=== PATIENT | female | born 1965 | race Caucasian/White ===

== ENCOUNTER 2022-01-11 07:41 | Outpatient (REF) | payer OTHER, SELFPAY ==
--- NOTE | ~2022-01-11 | MM_ITS ---
EXAMINATION: MM SCREENING DIGITAL BREAST TOMOSYNTHESIS, BILATERAL CLINICAL INFORMATION: Screening. Asymptomatic. History left ADH 2011. Recent outside benign left stereotactic biopsy 09/13/2019 (microcalcifications with columnar cell change, cystic apocrine metaplasia). Outside right cyst aspiration 09/13/2019. The lifetime risk of breast cancer based on the Tyrer-Cuzick Model is 29.5%. COMPARISON: Outside mammography: 09/13/2019, 09/08/2019, 07/19/2018 ([facility]); outside right cyst aspiration 09/13/2019 ([facility]); 08/27/2011, 08/01/2011. TECHNIQUE: Digital breast tomosynthesis is performed in both the craniocaudal and mediolateral oblique views along with computer-aided detection (CAD). Synthesized 2D images are generated from the tomosynthesis. FINDINGS: There are scattered areas of fibroglandular density (ACR BI-RADS breast composition Category b). Breast tissue composition borders on heterogeneously dense in the outer quadrants. There is a T-shaped biopsy clip marker posterior outer left breast. Stable minor scarring is present central inner left breast. There is no significant mass or interval architectural abnormality or developing density. Scattered punctate and some coarse calcifications are present in both breasts similar in number and distribution to prior outside exams. No significant changes. MM/MM tomosynthesis screening BI IMPRESSION: No mammographic evidence of malignancy. ASSESSMENT: BI-RADS 2: Benign RECOMMENDATION: Routine annual mammography screening. This patient's information was entered into a reminder system with a target due date for their next mammogram.
== END 2022-01-11 07:42 | disposition home or self-care (01) ==
LOC: HO.MAMMO 07:41
PROVIDERS: PCP Internal Medicine; Visit Provider Internal Medicine
DX: Z12.31 Encounter for screening mammogram for malignant neoplasm of breast (principal)
CPT/HCPCS: 77063; 77067

== ENCOUNTER 2023-01-16 09:10 | Outpatient (AMB) | payer OTHER, SELFPAY ==
--- NOTE | 2023-01-16 09:01 | A.OFFPC_ITS ---
Intake Visit Reasons: Annual Exam Allergies ENVIRONMENTAL Allergy (Unknown, Uncoded 12/18/21 09:38) EYES WATER, SNEEZING Tobacco use date assessed: 12/18/21 [facility] Medical History Borderline hypercholesterolemia Essential hypertension History of LEEP (loop electrosurgical excision procedure) of cervix complicating Surgical History History of lumpectomy Family History Other Mental health disorder Social History Housing: House Alcohol intake: never Patient Tobacco Use Status: Current everyday Tobacco user Tobacco use type: Cigarette Cigarette Packs Per Day: 0.5 Cigarettes Per Day: 10 e-Cigarette/Vaping Use: Never Used Second Hand Smoke Exposure: Yes service: No Current occupational status: employed 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 Chet Montano, Berta Lugo, Antione Butler and colleagues, with an educational yulissa from [employer]. Physical exam (Primary Care) Tobacco/Smoking Status: Tobacco use Status Tobacco use date assessed 12/18/21 11/14/22 11:52 Patient Tobacco Use Status Current everyday Tobacco 11/14/22 11:52 Tobacco use type Cigarette 11/14/22 11:52 e-Cigarette/Vaping Use Never Used 11/14/22 11:52 Thrive Assessment: Date of Thrive Assessment Date Thrive assessed 12/18/21 11/14/22 11:52 Coding
[2023-01-16 09:11] VITALS: BP 120/78; PULSE 74; O2SAT 99; BMI 22.7
--- NOTE | 2023-01-16 09:11 | MHC.PC.OV ---
Vital Signs 01/16/23 09:11 Height 5 ft 3 in Weight 128 lb 0.4 oz BMI 22.7 BP 120/78 Blood Pressure Location Lt brachial Position Sitting Pulse 74 Pulse Source Pulse Oximeter Temp Source Skin Pulse Oximetry (%) 99 Oxygen Delivery Method Room Air Intake Visit Reasons: Annual Exam Intake Note: Patient is here today for a physical. Bee Rancher Required: No Allergies ENVIRONMENTAL Allergy (Unknown, Uncoded 01/16/23 09:30) EYES WATER, SNEEZING Medication List - Last Reconciled 01/16/23 by KIANNA Rowland sertraline 150 mg (1.5 x 100 mg) PO DAILY simvastatin 10 mg PO QPM Tobacco use date assessed: 01/16/23 Dental Screening Dental Screen Date: 01/16/23 Did you have a dental visit in the last 12 months?: No Did you have a dental problem in the last 6 months where you did not have access to dental care?: No Was dental information given to patient?: Patient has dentist HPI Annual Exam HPI Details Patient is a 57-year-old female who presents today for physical exam. Patient of Dr. Araiza. Medical history significant for hypercholesterolemia, hypertension, depression. Patient reports normal colonoscopy in 2015 at [facility] and repeat in 10 years. She received a letter for mammogram and will call for an appointment. She reports normal Pap smear 03/[address] [facility] gynecology. We also discussed patient's need for low-dose chest CT scan, she will think about this. Encouraged smoking cessation, patient smokes 0.5 ppd, declined nicotine patch. Eye exam up-to-date. Will call for dental exam. Reports brown discoloration to her toenails and would like evaluation for this. Patient denies shortness of breath or chest pain. 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 1. Little interest or pleasure in doing things: not at all 2. Feeling down, depressed, or hopeless: not at all 3. Trouble falling or staying asleep, or sleeping too much: not at all 4. Feeling tired or having little energy: not at all 5. Poor appetite or overeating: not at all 6. Feeling bad about yourself - or that you are a failure or have let yourself or your family down: not at all 7. Trouble concentrating on things, such as reading the newspaper or watching television: not at all 8. Moving or speaking so slowly that other people could have noticed. Or the opposite - being so fidgety or restless that you have been moving around a lot more than usual: not at all 9. Thoughts that you would be better off or of hurting yourself in some way: not at all Total score: 0 Depression Screening Interpretation: Negative Depression Screening Done: Yes [id number] - PHQ-9 Billing: Yes Source: Developed by Drs. Chet Montano, Berta Lugo, Antione Butler and colleagues, with an educational yulissa from [employer]. Thrive Questionnaire Date Thrive assessed: 01/16/23 I am a: Patient What is your living situation today?: I have a steady place to live Within the past 12 months, did the food you bought not last and you didn't have the money to get more?: Never true Within the past 12 months, did you worry whether your food would run out before you got money to buy more?: Never true Do you have trouble paying for medicines?: No Do you have trouble getting transportation to medical appointments?: No Do you have trouble paying your heating and electricity bill?: No Do you have trouble taking care of your child, family member or friend?: No Do you have trouble with day-to-day activities such as bathing, preparing meals, shopping, managing finances, etc.?: No Are you currently unemployed and looking for a job?: No Are you interested in more education?: No Currently or been in a relationship where the following occur: no concerns reported AUDIT C Alcohol Use Questionnaire (AUDIT-C) 1. How often do you have a drink containing alcohol?: 2-4 times a month 2. How many drinks containing alcohol do you have on a typical day when you are drinking?: 1 or 2 (0) 3. How often do you have six or more drinks on one occasion?: Never Total Score: 2 Score Reviewed/Action Taken: No OUMOU-7 AMB Questionnaire OUMOU-7 Date OUMOU - 7 assessed: 01/16/23 Feeling nervous, anxious, or on edge: 0 = Not at all Not being able to stop or control worryin = Not at all Worrying too much about different things: 0 = Not at all Trouble relaxin = Not at all Being so restless that it is hard to sit still: 0 = Not at all Becoming easily annoyed or irritable: 0 = Not at all Feeling afraid as if something awful might happen: 0 = Not at all Total OUMOU-7 score (0-4 normal; 5-9 mild; 10-14 moderate; 15-21 severe): 0 Source: Developed by Drs. Chet Montano, Berta Lugo, Antione Butler and colleagues, with an educational yulissa from [employer]. OUMOU-7 Assessment Billing OUMOU-7 Assessment Tool: OUMOU-7 Assessment 15846 Review of Systems Const Denies body aches, Denies chills, Denies fever(s) and Denies headache(s) Eyes Denies change in vision ENT Denies dizziness, Denies otalgia, Denies headache(s), Denies nasal discharge, Denies sinus pain and Denies sore throat Card Denies chest pain, Denies edema, Denies lightheadedness and Denies dyspnea Resp Denies cough, Denies dyspnea and Denies wheezing GI Denies abdominal pain, Denies constipation, Denies diarrhea, Denies nausea and Denies vomiting Denies dysuria Musc Denies myalgias Skin/Breast Reports as per HPI and Denies rash Neuro Denies dizziness and Denies headache(s) Aller/Immun Denies wheezing Physical exam (Primary Care) Vital Signs: Last Vital Signs Pulse 74 01/16/23 09:11 BP 120/78 01/16/23 09:11 Pulse Ox 99 01/16/23 09:11 Oxygen Delivery Method Room Air 01/16/23 09:11 BMI result Body Mass Index 22.7 Tobacco/Smoking Status: Tobacco use Status Tobacco use date assessed 01/16/23 01/16/23 09:13 Patient Tobacco Use Status Current everyday Tobacco 01/16/23 09:13 Tobacco use type Cigarette 01/16/23 09:13 e-Cigarette/Vaping Use Never Used 01/16/23 09:13 PHQ-9: PHQ-9 Score PHQ-9: Total score 0 01/16/23 09:18 Depression Screening Interpretation: Negative Thrive Assessment: Date of Thrive Assessment Date Thrive assessed 01/16/23 01/16/23 09:13 Currently or been in a relationship where the following occur: no concerns reported Const General: cooperative and no acute distress Orientation/consciousness: patient oriented x3 HENMT Head: Yes normocephalic and Yes atraumatic Ears: TM's normal bilaterally Face and sinus: Yes sinuses nontender Mouth: oropharynx normal and moist mucous membranes Throat: Yes posterior oropharynx normal Eyes General: appearance normal, both eyes and all related structures Pupils: Equal, round and reactive pupils present EOM: EOMs intact bilaterally Neck Neck: Yes normal visual inspection, Yes full ROM and Yes no lymphadenopathy Thyroid: Thyroid normal Resp Effort & Inspection: normal respiratory effort and able to speak in complete sentences Auscultation: clear to auscultation bilaterally, no crackles, no rales, no rhonchi and no wheezes Cardio Rate: regular rate Rhythm: regular rhythm Heart sounds: S1 normal heart sound present, S2 normal heart sound present and no murmurs GI Palpation (GI): Soft to palpation, not firm, nontender, no guarding, not rigid and no hepatosplenomegaly Auscultation: normal bowel sounds General: No CVA tenderness Back/Spine/Pelvis Back: No CVA tenderness Skin Other: Multiple toenails with brown discoloration and thick nails Neuro General: patient oriented x3 Cranial nerves: Yes Equal, round and reactive pupils present Gait exam (Neuro): Normal gait present Extrem General: Yes full ROM and No edema Office Procedures Flu Questionnaire Does the patient have a severe egg allergy?: No Does the patient have severe life threatening allergies?: No Does the patient have a fever or illness today?: No Has the patient ever had Guillain-[place] Syndrome?: No Has the patient ever had any past reaction to a flu shot?: No Immunizations flu vacc [id number] 6mos up(PF) 60 mcg(15 mcgx4)/0.5 mL IM syringe Performing Provider: KIANNA Rowland [facility] Administered by: MASOUD Pulido on 01/16/23 09:18 Dose Route Admin Location Dispensed Lot Number Expiration Date NDC Internet Marketing Consultant 0.5 mL IM Left Deltoid 0.5 mL [id number] 09/27/23 71069-470-52 [employer] VIS Given Date VIS Provided VIS Publication Date 01/16/23 Single Vaccine 20 Eligibility Eligibility Date Funding Source Not [facility] Eligible 01/16/23 Private Assessment and Plan Assessment & Plan (1) Toenail fungus: Code(s): B35.1 - Tinea unguium Plan: Podiatry referral (2) Depression: Code(s): F32.A - Depression, unspecified Qualifiers: Depression Type: other depression Qualified Code(s): F32.89 - Other specified depressive episodes Plan: Stable with sertraline (3) Annual physical exam: Code(s): Z00.00 - Encounter for general adult medical examination without abnormal findings Plan: Repeat in 1 year (4) Essential hypertension: Code(s): I10 - Essential (primary) hypertension Plan: Goal BP equal or less than 140/90 Stable Not on medication (5) Borderline hypercholesterolemia: Code(s): E78.00 - Pure hypercholesterolemia, unspecified Plan: Continue simvastatin Low-cholesterol diet, blood work ordered (6) Smoker: Code(s): F17.200 - Nicotine dependence, unspecified, uncomplicated Plan: Encouraged smoking cessation Orders: Orders Influenza [id number] Immunization Today Z23 - Encounter for immunization Vitamin D 25-OH Total Today I10 - Essential (primary) hypertension TSH reflex Free T4 Today I10 - Essential (primary) hypertension Lipid Panel Today E78.00 - Pure hypercholesterolemia, unspecified Comprehensive Sumrall. Panel Fast Today I10 - Essential (primary) hypertension Complete Blood Count Auto Diff Today I10 - Essential (primary) hypertension Referrals Podiatry Referral B35.1 - Tinea unguium Coding Level of Care Code Est Pt Prev Care 40-64y(54277) Diagnoses Toenail fungus B35.1 Other depression F32.89 Depression Type: other depression Annual physical exam Z00.00 Essential hypertension I10 Borderline hypercholesterolemia E78.00 Smoker F17.200 Additional Codes OUMOU-7 Assessment Billing - OUMOU-7 Assessment Tool: OUMOU-7 Assessment 37106 ([id number])
== END 2023-01-16 09:44 | disposition home or self-care (01) ==
PROVIDERS: PCP Internal Medicine; Visit Provider Nurse Practitioner Family
DX: Z23 Encounter for immunization (principal); Z00.00 Encounter for general adult medical examination without abnormal findings; B35.1 Tinea unguium; I10 Essential (primary) hypertension; E78.00 Pure hypercholesterolemia, unspecified
CPT/HCPCS: 90471; 90686; 99396

== ENCOUNTER 2023-01-26 09:52 | Outpatient (REF) | payer OTHER, SELFPAY ==
[2023-01-26 11:04] LABS: MANUAL DIFF FLAG NO
[2023-01-26 11:08] LABS: Basophils Percent Auto 0.4 % (0-2); Eosinophils Absolute Auto 0.2 X10*3/uL (0.0-0.4); Eosinophils Percent Auto 2.6 % (0-4); Hematocrit 43.1 % (37.0-47.0); Hemoglobin 14.8 g/dl (12.0-16.0); Imm Gran Abs Auto 0.01 X10*3/uL (0.00-0.03); Imm Gran Pct Auto 0.1 % (0.0-0.4); Lymphocytes Percent Auto 35.5 % (20-40); Mean Corpuscular HGB Conc 34.3 g/dl (31.0-35.0); Mean Corpuscular Volume 99.1 fL (80.0-98.0); Mean Platelet Volume 10.7 fL (9.4-12.3); Monocytes Absolute Auto 0.4 X10*3/uL (0.1-1.2); Monocytes Percent Auto 4.9 % (2-11); Neutrophils Absolute Auto 4.7 x10*3/uL (2.0-8.3); Neutrophils Percent Auto 56.5 % (45-73); Platelet Count 231 X10*3/uL (160-400); Red Blood Count 4.35 X10*6/uL (4.20-5.50); Red Cell Distribution Width 13.1 % (11.0-16.0); White Blood Count 8.3 X10*3/uL (4.8-10.8)
[2023-01-26 11:31] LABS: Alanine Aminotransferase 15 U/L (0-31); Albumin Level 4.3 g/dL (3.5-5.0); Alkaline Phosphatase 65 U/L (39-117); Anion Gap 14 (12-20); Aspartate Amino Transferase 15 U/L (5-31); Bilirubin Total 0.5 mg/dL (0.0-1.0); Blood Urea Nitrogen 15 mg/dL (9-16); Calcium 9.2 mg/dL (8.4-10.2); Carbon Dioxide 22 mmol/L (22-29); Chloride 109 mmol/L (96-108); Cholesterol 197 mg/dL (<200); Estimated Glomerular Filt Rate > 60; Glucose Fasting 117 mg/dL (60-99); HDL Cholesterol 61 mg/dL (>40); LDL Cholesterol Calculated 122 mg/dL (<100); Potassium 4.3 mmol/L (3.3-5.1); Sodium 141 mmol/L (135-145); Total Protein 7.1 g/dL (6.5-8.0); Triglycerides 73 mg/dL (<150)
[2023-01-26 11:48] LABS: Vitamin D 25-OH Total 29.9 ng/mL (>30)
== END 2023-01-26 09:53 | disposition home or self-care (01) ==
LOC: HO.10HDL 09:52
PROVIDERS: Visit Provider Nurse Practitioner Family
DX: I10 Essential (primary) hypertension (principal); E78.00 Pure hypercholesterolemia, unspecified
CPT/HCPCS: 36415; 80053; 80061; 82306; 84443; 85025

== ENCOUNTER 2024-01-21 09:30 | Outpatient (AMB) | payer OTHER, SELFPAY ==
--- NOTE | 2024-01-21 09:35 | A.OFFPC_ITS ---
Vital Signs 01/21/24 09:37 Height 5 ft 3 in Weight 154 lb 6 oz BMI 27.3 BP 120/72 Blood Pressure Location Lt brachial Position Sitting Pulse 82 Pulse Source Pulse Oximeter Pulse Oximetry (%) 95 Oxygen Delivery Method Room Air Intake Visit Reasons: Annual Exam Intake Note: Patient is here today for a physical. Building Energy Retrofit Technician Required: No Etl Informatica Developer: Not Required per policy Accompanied by: Self / Same As Patient Allergies ENVIRONMENTAL Allergy (Unknown, Uncoded 01/21/24 09:59) EYES WATER, SNEEZING Medication List - Last Reconciled 01/21/24 by Clinton Araiza MD cholecalciferol (vitamin D3) 25 mcg PO DAILY sertraline 150 mg (1.5 x 100 mg) PO DAILY simvastatin 10 mg PO QPM Tobacco use date assessed: 01/21/24 Dental Screening Dental Screen Date: 01/21/24 Did you have a dental visit in the last 12 months?: No Did you have a dental problem in the last 6 months where you did not have access to dental care?: No Was dental information given to patient?: No HPI Annual Exam HPI Details 58-year-old female presents to the offic e requesting an annual physical. [facility] Medical History (Updated 01/21/24 @ 10:04 by Clinton Araiza MD) Tobacco use disorder Depression Essential hypertension Borderline hypercholesterolemia History of LEEP (loop electrosurgical excision procedure) of cervix complicating Surgical History (Updated 01/21/24 @ 10:05 by Clinton Araiza MD) History of colonoscopy (~11/05/15) History of lumpectomy Family History Other Mental health disorder Social History Housing: House Alcohol intake: never Patient Tobacco Use Status: Current everyday Tobacco user Tobacco use type: Cigarette Cigarette Packs Per Day: 0.5 Cigarettes Per Day: 10 e-Cigarette/Vaping Use: Never Used Second Hand Smoke Exposure: Yes service: No Current occupational status: employed 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 1. Little interest or pleasure in doing things: not at all 2. Feeling down, depressed, or hopeless: not at all 3. Trouble falling or staying asleep, or sleeping too much: not at all 4. Feeling tired or having little energy: not at all 5. Poor appetite or overeating: not at all 6. Feeling bad about yourself - or that you are a failure or have let yourself or your family down: not at all 7. Trouble concentrating on things, such as reading the newspaper or watching television: not at all 8. Moving or speaking so slowly that other people could have noticed. Or the opposite - being so fidgety or restless that you have been moving around a lot more than usual: not at all 9. Thoughts that you would be better off or of hurting yourself in some way: not at all Total score: 0 Depression Screening Interpretation: Negative Depression Screening Done: Yes Source: Developed by Drs. Chet Montano, Berta Lugo, Antione Butler and colleagues, with an educational yulissa from [employer]. Thrive Questionnaire Date Thrive assessed: 01/21/24 I am a: Patient What is your living situation today?: I have a steady place to live Within the past 12 months, did the food you bought not last and you didn't have the money to get more?: Often true Within the past 12 months, did you worry whether your food would run out before you got money to buy more?: Often true Do you have trouble paying for medicines?: No Do you have trouble getting transportation to medical appointments?: No Do you have trouble paying your heating and electricity bill?: No Do you have trouble taking care of your child, family member or friend?: No Do you have trouble with day-to-day activities such as bathing, preparing meals, shopping, managing finances, etc.?: No Are you currently unemployed and looking for a job?: Yes Are you interested in more education?: No Please select the resources that you would like help with: None Currently or been in a relationship where the following occur: No concerns reported THRIVE Score: 2 AUDIT C Alcohol Use Questionnaire (AUDIT-C) 1. How often do you have a drink containing alcohol?: 2-4 times a month 2. How many drinks containing alcohol do you have on a typical day when you are drinking?: 1 or 2 3. How often do you have six or more drinks on one occasion?: Never Total Score: 2 OUMOU-7 AMB Questionnaire OUMOU-7 Date OUMOU - 7 assessed: 01/21/24 Feeling nervous, anxious, or on edge: 0 = Not at all Not being able to stop or control worryin = Not at all Worrying too much about different things: 0 = Not at all Trouble relaxin = Not at all Being so restless that it is hard to sit still: 0 = Not at all Becoming easily annoyed or irritable: 0 = Not at all Feeling afraid as if something awful might happen: 0 = Not at all Total OUMOU-7 score (0-4 normal; 5-9 mild; 10-14 moderate; 15-21 severe): 0 Source: Developed by Drs. hCet Montano, Berta Lugo, Antione Butler and colleagues, with an educational yulissa from [employer]. Physical exam (Primary Care) Vital Signs: Last Vital Signs Pulse 82 01/21/24 09:37 BP 120/72 01/21/24 09:37 Pulse Ox 95 01/21/24 09:37 Oxygen Delivery Method Room Air 01/21/24 09:37 Care Plan Goal for BP management: Blood pressure is in range. BMI result Body Mass Index 27.3 Tobacco/Smoking Status: Tobacco use Status Tobacco use date assessed 01/21/24 01/21/24 09:43 Patient Tobacco Use Status Current everyday Tobacco 01/21/24 09:43 Tobacco use type Cigarette 01/21/24 09:43 e-Cigarette/Vaping Use Never Used 01/21/24 09:43 Are you ready to quit: No Tobacco cessation counseling provided: No PHQ-9: PHQ-9 Score PHQ-9: Total score 0 01/21/24 10:04 Depression Screening Interpretation: Negative Thrive Assessment: Date of Thrive Assessment Date Thrive assessed 01/21/24 01/21/24 09:43 Currently or been in a relationship where the following occur: No concerns reported Const General: cooperative and healthy appearing Nutritional Appearance: well nourished Orientation/consciousness: patient oriented x3 Limitations: no limitations HENMT Head: Yes normal to inspection Eyes General: appearance normal, both eyes and all related structures Neck Neck: Yes normal visual inspection Chest Chest palpation & inspection: normal palpation of entire chest wall Resp Effort & Inspection: normal respiratory effort Neuro General: patient oriented x3 Office Procedures Flu Questionnaire Does the patient have a severe egg allergy?: No Does the patient have severe life threatening allergies?: No Does the patient have a fever or illness today?: No Has the patient ever had Guillain-[place] Syndrome?: No Has the patient ever had any past reaction to a flu shot?: No Immunizations Fluarix Triv [id number] (PF) 45 mcg (15 mcg x 3)/0.5 mL IM syringe Performing Provider: Clinton Araiza MD [facility] Administered by: Honey Singer LPN on 01/21/24 10:06 Dose Route Admin Location Dispensed Lot Number Expiration Date NDC Protective Services Case Worker 0.5 mL IM Left Deltoid 0.5 mL [id number] 09/26/24 [id number] [place] VIS Given Date VIS Provided VIS Publication Date 01/21/24 Single Vaccine 20 Eligibility Eligibility Date Funding Source Not [facility] Eligible 01/21/24 Private Coding Level of Care Code Est Pt Prev Care 40-64y(42357) Diagnoses Tobacco use disorder F17.200 Annual physical exam Z00.00 Essential hypertension I10 Borderline hypercholesterolemia E78.00 Other depression F32.89 Depression Type: other depression Assessment & Plan Assessment & Plan (1) Tobacco use disorder: Code(s): F17.200 - Nicotine dependence, unspecified, uncomplicated Category: Medical Plan: Patient was counseled to quit smoking. (2) Annual physical exam: Code(s): Z00.00 - Encounter for general adult medical examination without abnormal findings Category: Medical Plan: Mammogram has been ordered. Blood work has been ordered. Patient is up-to-date on her flu vaccine. (3) Essential hypertension: Code(s): I10 - Essential (primary) hypertension Category: Medical Plan: Blood pressure is in range. Blood work has been ordered. (4) Borderline hypercholesterolemia: Code(s): E78.00 - Pure hypercholesterolemia, unspecified Category: Medical Plan: Blood work has been ordered. (5) Depression: Code(s): F32.A - Depression, unspecified Category: Medical Qualifiers: Depression Type: other depression Qualified Code(s): F32.89 - Other specified depressive episodes Plan: Continue current medications.
[2024-01-21 09:37] VITALS: BP 120/72; PULSE 82; O2SAT 95; BMI 27.3
== END 2024-01-21 09:59 | disposition home or self-care (01) ==
PROVIDERS: PCP Internal Medicine; Visit Provider Internal Medicine
DX: F17.200 Nicotine dependence, unspecified, uncomplicated (principal); Z00.00 Encounter for general adult medical examination without abnormal findings; I10 Essential (primary) hypertension; E78.00 Pure hypercholesterolemia, unspecified; F32.89 Other specified depressive episodes; Z23 Encounter for immunization

== ENCOUNTER → 2024-01-21 09:30 | Outpatient (BNVA) | payer OTHER, SELFPAY | PROVIDERS: PCP Internal Medicine; Visit Provider Internal Medicine | DX: Z00.01 Encounter for general adult medical examination with abnormal findings (principal); Z23 Encounter for immunization; I10 Essential (primary) hypertension; E78.00 Pure hypercholesterolemia, unspecified; F32.89 Other specified depressive episodes; F17.200 Nicotine dependence, unspecified, uncomplicated; Z71.6 Tobacco abuse counseling | CPT/HCPCS: 90471; 90656; 96127; 99396 ==

== ENCOUNTER 2024-07-21 08:11 | Outpatient (AMB) | payer OTHER, SELFPAY ==
[2024-07-21 08:12] VITALS: BP 110/76; PULSE 66; RESP 18; TEMP 36.3; O2SAT 97; BMI 28.3
--- NOTE | 2024-07-21 08:12 | MHC.PC.OV ---
Vital Signs 07/21/24 08:12 Height 5 ft 3 in Weight 159 lb 9.6 oz BMI 28.3 BP 110/76 Blood Pressure Location Lt brachial Position Sitting Respiration 18 Pulse 66 Pulse Source Pulse Oximeter Temp 97.3 F Temp Source Temporal Artery Scan Pulse Oximetry (%) 97 Oxygen Delivery Method Room Air Intake Visit Reasons: 6 month f/u Senior Product Manager Required: No Accompanied by: Self / Same As Patient Allergies ENVIRONMENTAL Allergy (Unknown, Uncoded 07/21/24 08:34) EYES WATER, SNEEZING Medication List - Last Reconciled 07/21/24 by Clinton Araiza MD black cohosh 200 mg PO DAILY cholecalciferol (vitamin D3) 25 mcg PO DAILY sertraline 150 mg (1.5 x 100 mg) PO DAILY simvastatin 10 mg PO QPM Tobacco use date assessed: 01/21/24 Dental Screening Dental Screen Date: 07/21/24 Did you have a dental visit in the last 12 months?: No Did you have a dental problem in the last 6 months where you did not have access to dental care?: No Was dental information given to patient?: No [facility] Medical History Tobacco use disorder Depression Essential hypertension Borderline hypercholesterolemia History of LEEP (loop electrosurgical excision procedure) of cervix complicating Surgical History History of colonoscopy (~11/05/15) History of lumpectomy Family History Other Mental health disorder Social History Housing: House Alcohol intake: never Patient Tobacco Use Status: Current everyday Tobacco user Tobacco use type: Cigarette Cigarette Packs Per Day: 0.5 Cigarettes Per Day: 10 e-Cigarette/Vaping Use: Never Used Second Hand Smoke Exposure: Yes service: No Current occupational status: employed 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 1. Little interest or pleasure in doing things: not at all 2. Feeling down, depressed, or hopeless: not at all 3. Trouble falling or staying asleep, or sleeping too much: not at all 4. Feeling tired or having little energy: not at all 5. Poor appetite or overeating: not at all 6. Feeling bad about yourself - or that you are a failure or have let yourself or your family down: not at all 7. Trouble concentrating on things, such as reading the newspaper or watching television: not at all 8. Moving or speaking so slowly that other people could have noticed. Or the opposite - being so fidgety or restless that you have been moving around a lot more than usual: not at all 9. Thoughts that you would be better off or of hurting yourself in some way: not at all Total score: 0 Depression Screening Interpretation: Negative Depression Screening Done: Yes 50468 - PHQ-9 Billing: Yes Source: Developed by Drs. Chet Montano, Berta Lugo, Antione Butler and colleagues, with an educational yulissa from [employer]. Thrive Questionnaire Date Thrive assessed: 07/21/24 I am a: Patient What is your living situation today?: I have a steady place to live Within the past 12 months, did the food you bought not last and you didn't have the money to get more?: Often true Within the past 12 months, did you worry whether your food would run out before you got money to buy more?: Often true Do you have trouble paying for medicines?: No Do you have trouble getting transportation to medical appointments?: No Do you have trouble paying your heating and electricity bill?: No Do you have trouble taking care of your child, family member or friend?: No Do you have trouble with day-to-day activities such as bathing, preparing meals, shopping, managing finances, etc.?: No Are you currently unemployed and looking for a job?: Yes Are you interested in more education?: No Please select the resources that you would like help with: None Currently or been in a relationship where the following occur: No concerns reported THRIVE Score: 2 AUDIT C Alcohol Use Questionnaire (AUDIT-C) 1. How often do you have a drink containing alcohol?: 2-3 times a week 2. How many drinks containing alcohol do you have on a typical day when you are drinking?: 1 or 2 3. How often do you have six or more drinks on one occasion?: Never Total Score: 3 Score Reviewed/Action Taken: No OUMOU-7 AMB Questionnaire OUMOU-7 Date OUMOU - 7 assessed: 07/21/24 Feeling nervous, anxious, or on edge: 0 = Not at all Not being able to stop or control worryin = Not at all Worrying too much about different things: 0 = Not at all Trouble relaxin = Not at all Being so restless that it is hard to sit still: 0 = Not at all Becoming easily annoyed or irritable: 0 = Not at all Feeling afraid as if something awful might happen: 0 = Not at all Total OUMOU-7 score (0-4 normal; 5-9 mild; 10-14 moderate; 15-21 severe): 0 Source: Developed by Drs. Chet Montano, Berta Lugo, Antione Butler and colleagues, with an educational yulissa from [employer]. OUMOU-7 Assessment Billing OUMOU-7 Assessment Tool: OUMOU-7 Assessment 52245 Physical exam (Primary Care) Vital Signs: Last Vital Signs Temp 97.3 F 07/21/24 08:12 Pulse 66 07/21/24 08:12 Resp 18 07/21/24 08:12 BP 110/76 07/21/24 08:12 Pulse Ox 97 07/21/24 08:12 Oxygen Delivery Method Room Air 07/21/24 08:12 Care Plan Goal for BP management: BP in range. BMI result Body Mass Index 28.3 Tobacco/Smoking Status: Tobacco use Status Tobacco use date assessed 01/21/24 07/21/24 08:14 Patient Tobacco Use Status Current everyday Tobacco 07/21/24 08:14 Tobacco use type Cigarette 07/21/24 08:14 e-Cigarette/Vaping Use Never Used 07/21/24 08:14 Are you ready to quit: No Tobacco cessation counseling provided: Yes PHQ-9: PHQ-9 Score PHQ-9: Total score 0 07/21/24 08:20 Depression Screening Interpretation: Negative Thrive Assessment: Date of Thrive Assessment Date Thrive assessed 07/21/24 07/21/24 08:14 Currently or been in a relationship where the following occur: No concerns reported Coding Level of Care Code Est Pt Level 4 (49581) Complex EM visit Add On G2211 Diagnoses Other depression F32.89 Depression Type: other depression Essential hypertension I10 Borderline hypercholesterolemia E78.00 Tobacco use disorder F17.200 Additional Codes OUMOU-7 Assessment Billing - OUMOU-7 Assessment Tool: OUMOU-7 Assessment 85119 ([id number]) PHQ-9 - 83211 - PHQ-9 Billing: Yes ([id number]) Assessment & Plan Assessment & Plan (1) Depression: Code(s): F32.A - Depression, unspecified Category: Medical Qualifiers: Depression Type: other depression Qualified Code(s): F32.89 - Other specified depressive episodes Plan: Condition well controlled on the medications. Continue meds at same dosage. (2) Essential hypertension: Code(s): I10 - Essential (primary) hypertension Category: Medical Plan: BP is in range. Continue meds at same dosage. (3) Borderline hypercholesterolemia: Code(s): E78.00 - Pure hypercholesterolemia, unspecified Category: Medical Plan: BW ordered. Encouraged patient to get blood work done (4) Tobacco use disorder: Code(s): F17.200 - Nicotine dependence, unspecified, uncomplicated Category: Medical Plan: Counselled to quit smoking. Plan History of Present Illness The patient is a 59-year-old female presenting for health maintenance and wellness evaluation, mentioning an allergy-related swelling in the eye. This condition is reportedly managed with caih-lvz-zdhumsi medication, specifically Benadryl. The patient also reported a daily smoking habit of approximately 9 cigarettes, with plans to reduce this to 5. Overall, the patient reported feeling well and functioning adequately with current medications. No significant lifestyle change or deterioration in health was reported since the previous evaluation. Social History - Employment: No longer working. - Activity Level: Actively spending time in the garden; not sedentary. - Smoking: Reports smoking 9 cigarettes a day, advised to reduce to 5. - Exercise: Engaging in regular exercise. Review of Systems - Eye: Reports swelling of one eye, believed to be due to allergies. - Respiratory: Denies any respiratory symptoms like cough or shortness of breath. - General: Denies significant weight loss or other systemic symptoms. Physical Exam General: Cooperative and healthy appearing Nutritional Appearance: Well nourished Orientation/consciousness: Patient oriented x3 Limitations: No limitations Head: Normal to inspection General: Appearance normal, both eyes and all related structures Neck: Normal visual inspection Chest: Normal palpation of entire chest wall Respiratory: Smokes 9 a day, advised to reduce to 5 ormal respiratory effort Neurology: Patient oriented x3 Results Plan 1. Exercise and activity guidelines remain the same, encouraging sustained outdoor activities in her garden. A six-month follow-up is advised for reassessment, with a focus on health maintenance targets.: Patient was informed and verbally consented to the use of an ambient scribe for clinic note documentation during this visit. Discussion Notes During the consultation, we discussed the management of allergy-related eye swelling with [id number] Benadryl. I underlined the importance of completing the mammogram that has been scheduled and to ensure that the blood work is done. I stressed reducing cigarette intake to 5 per day to mitigate health risks associated with smoking. We agreed on maintaining physical activity levels, especially with gardening, as beneficial. I advised a follow-up visit in six months to evaluate progress on these health objectives and any other emerging concerns. Patient Instructions - Continue using Benadryl for allergy-related eye swelling as needed. - Schedule and complete a mammogram. - Complete blood work as ordered. - Reduce cigarette smoking to 5 per day. - Continue engaging in regular exercise and garden activities. - Return for follow-up in six months. Orders: Orders Complete Blood Count no Diff Today E78.00 - Pure hypercholesterolemia, unspecified, F32.89 - Other specified depressive episodes, I10 - Essential (primary) hypertension Lipid Panel Today E78.00 - Pure hypercholesterolemia, unspecified, F32.89 - Other specified depressive episodes, I10 - Essential (primary) hypertension UA and rflx microscopic Today E78.00 - Pure hypercholesterolemia, unspecified, F32.89 - Other specified depressive episodes, I10 - Essential (primary) hypertension Basic Metabolic Panel Today E78.00 - Pure hypercholesterolemia, unspecified, F32.89 - Other specified depressive episodes, I10 - Essential (primary) hypertension Liver Panel Today E78.00 - Pure hypercholesterolemia, unspecified, F32.89 - Other specified depressive episodes, I10 - Essential (primary) hypertension Thyroid Stimulating Hormone Today E78.00 - Pure hypercholesterolemia, unspecified, F32.89 - Other specified depressive episodes, I10 - Essential (primary) hypertension
== END 2024-07-21 08:34 | disposition home or self-care (01) ==
LOC: HO.HMCH 08:11
PROVIDERS: PCP Internal Medicine; Visit Provider Internal Medicine
DX: F32.89 Other specified depressive episodes (principal); I10 Essential (primary) hypertension; E78.00 Pure hypercholesterolemia, unspecified; F17.200 Nicotine dependence, unspecified, uncomplicated

== ENCOUNTER → 2024-07-21 08:11 | Outpatient (BNVA) | payer OTHER, SELFPAY | PROVIDERS: PCP Internal Medicine; Visit Provider Internal Medicine | DX: F32.89 Other specified depressive episodes (principal); I10 Essential (primary) hypertension; E78.00 Pure hypercholesterolemia, unspecified; F17.210 Nicotine dependence, cigarettes, uncomplicated | CPT/HCPCS: 96127; 99212 ==

== ENCOUNTER 2025-01-20 09:00 | Outpatient (REF) | payer OTHER, SELFPAY ==
[2025-01-20 13:39] LABS: Hematocrit 42.3 % (37.0-47.0); Hemoglobin 14.0 g/dl (12.0-16.0); Mean Corpuscular HGB Conc 33.1 g/dl (31.0-35.0); Mean Corpuscular Hemoglobin 33.1 pg (27.0-33.0); Mean Corpuscular Volume 100.0 fL (80.0-98.0); NRBC Abs Auto 0.000 X10*3/uL (0.0-0.012); NRBC Pct Auto 0.0 /100WBC (0.0-0.2); Platelet Count 191 X10*3/uL (160-400); Red Blood Count 4.23 X10*6/uL (4.20-5.50); White Blood Count 7.6 X10*3/uL (4.8-10.8)
[2025-01-20 13:46] LABS: Appearance Urine Hazy; Glucose Urine UA Negative (Negative); PH 6.0 (5.0-9.0); Specific Gravity - Urine 1.020 (1.005-1.025); UMIC TRIGGER UA YES
[2025-01-20 14:12] LABS: Alanine Aminotransferase 20 U/L (0-31); Albumin Level 4.4 g/dL (3.5-5.0); Alkaline Phosphatase 72 U/L (39-117); Anion Gap 10 (12-20); Aspartate Amino Transferase 20 U/L (5-31); Blood Urea Nitrogen 12 mg/dL (9-16); Calcium 9.0 mg/dL (8.4-10.2); Carbon Dioxide 26 mmol/L (22-29); Chloride 110 mmol/L (96-108); Cholesterol 188 mg/dL (<200); Estimated Glomerular Filt Rate > 60; HDL Cholesterol 53 mg/dL (>40); Potassium 4.2 mmol/L (3.3-5.1); Sodium 142 mmol/L (135-145); Thyroid Stimulating Hormone 2.52 uIU/mL (0.32-4.0); Total Protein 7.0 g/dL (6.5-8.0); Triglycerides 106 mg/dL (<150)
== END 2025-01-20 09:01 | disposition home or self-care (01) ==
LOC: HO.HMGCLDS 09:00
PROVIDERS: PCP Internal Medicine; Visit Provider Internal Medicine
DX: I10 Essential (primary) hypertension (principal); F32.89 Other specified depressive episodes; E78.00 Pure hypercholesterolemia, unspecified
CPT/HCPCS: 36415; 80048; 80061; 80076; 81001; 84443; 85027

== ENCOUNTER 2025-01-26 08:20 | Outpatient (AMB) | payer OTHER, SELFPAY ==
[2025-01-26 08:33] VITALS: BP 130/72; PULSE 78; TEMP 36.4; O2SAT 94; BMI 28.9
--- NOTE | 2025-01-26 08:33 | MHC.PC.OV ---
Vital Signs 01/26/25 08:33 Height 5 ft 3 in Weight 163 lb 2 oz BMI 28.9 BP 130/72 Blood Pressure Location Lt brachial Position Sitting Pulse 78 Pulse Source Pulse Oximeter Temp 97.5 F Temp Source Temporal Artery Scan Pulse Oximetry (%) 94 Oxygen Delivery Method Room Air Intake Visit Reasons: Annual exam/ 6mth f/u - see comments Intake Note: Patient is here today for a physical. Network Security Consultant Required: No Legend Maker: Not Required per policy Accompanied by: Self / Same As Patient Allergies ENVIRONMENTAL Allergy (Unknown, Uncoded 01/26/25 08:33) EYES WATER, SNEEZING Tobacco use date assessed: 01/26/25 Dental Screening Dental Screen Date: 07/21/24 [facility] Medical History Tobacco use disorder Depression Essential hypertension Borderline hypercholesterolemia History of LEEP (loop electrosurgical excision procedure) of cervix complicating Surgical History History of colonoscopy (~11/05/15) History of lumpectomy Family History Other Mental health disorder Social History (Updated 01/26/25 @ 08:37 by MASOUD Warner) Housing: House Alcohol intake: current Alcohol intake frequency: a few times a month Patient Tobacco Use Status: Current everyday Tobacco user Tobacco use type: Cigarette Cigarette Packs Per Day: 0.5 Cigarettes Per Day: 10 e-Cigarette/Vaping Use: Never Used Second Hand Smoke Exposure: Yes service: No Current occupational status: retired Current occupation: [employer] Cognitive needs: No Hearing needs: No Vision needs: Yes (glasses) Questionnaire PHQ-9 Over the last 2 weeks, how often have you been bothered by any of the following problems? 1. Little interest or pleasure in doing things: not at all 2. Feeling down, depressed, or hopeless: not at all 3. Trouble falling or staying asleep, or sleeping too much: not at all 4. Feeling tired or having little energy: not at all 5. Poor appetite or overeating: not at all 6. Feeling bad about yourself - or that you are a failure or have let yourself or your family down: not at all 7. Trouble concentrating on things, such as reading the newspaper or watching television: not at all 8. Moving or speaking so slowly that other people could have noticed. Or the opposite - being so fidgety or restless that you have been moving around a lot more than usual: not at all 9. Thoughts that you would be better off or of hurting yourself in some way: not at all Total score: 0 Depression Screening Interpretation: Negative Depression Screening Done: Yes Source: Developed by Drs. Chet Montano, Berta Lugo, Antione Butler and colleagues, with an educational yulissa from [employer]. Thrive Questionnaire Date Thrive assessed: 01/20/25 I am a: Patient What is your living situation today?: I have a steady place to live Within the past 12 months, did the food you bought not last and you didn't have the money to get more?: Never true Within the past 12 months, did you worry whether your food would run out before you got money to buy more?: Never true Do you have trouble paying for medicines?: No Do you have trouble getting transportation to medical appointments?: No Do you have trouble paying your heating and electricity bill?: No Do you have trouble taking care of your child, family member or friend?: No Do you have trouble with day-to-day activities such as bathing, preparing meals, shopping, managing finances, etc.?: No Are you currently unemployed and looking for a job?: No Are you interested in more education?: No Please select the resources that you would like help with: None Currently or been in a relationship where the following occur: No concerns reported THRIVE Score: 0 AUDIT C Alcohol Use Questionnaire (AUDIT-C) 1. How often do you have a drink containing alcohol?: 2-3 times a week Total Score: 3 OUMOU-7 AMB Questionnaire OUMOU-7 Date OUMOU - 7 assessed: 07/21/24 Feeling nervous, anxious, or on edge: 0 = Not at all Not being able to stop or control worryin = Not at all Worrying too much about different things: 0 = Not at all Trouble relaxin = Not at all Being so restless that it is hard to sit still: 0 = Not at all Becoming easily annoyed or irritable: 0 = Not at all Feeling afraid as if something awful might happen: 0 = Not at all Total OUMOU-7 score (0-4 normal; 5-9 mild; 10-14 moderate; 15-21 severe): 0 Source: Developed by Drs. Chet Montano, Berta Lugo, Antione Butler and colleagues, with an educational yulissa from [employer]. Physical exam (Primary Care) Vital Signs: Last Vital Signs Temp 97.5 F 01/26/25 08:33 Pulse 78 01/26/25 08:33 BP 130/72 01/26/25 08:33 Pulse Ox 94 01/26/25 08:33 Oxygen Delivery Method Room Air 01/26/25 08:33 BMI result Body Mass Index 28.9 Tobacco/Smoking Status: Tobacco use Status Tobacco use date assessed 01/26/25 01/26/25 08:38 Patient Tobacco Use Status Current everyday Tobacco 01/26/25 08:38 Tobacco use type Cigarette 01/26/25 08:38 e-Cigarette/Vaping Use Never Used 01/26/25 08:38 PHQ-9: PHQ-9 Score PHQ-9: Total score 0 01/26/25 08:38 Depression Screening Interpretation: Negative Thrive Assessment: Date of Thrive Assessment Date Thrive assessed 01/20/25 01/26/25 08:38 Currently or been in a relationship where the following occur: No concerns reported Coding Level of Care Code Est Pt Prev Care 40-64y(66528) Diagnoses Annual physical exam Z00.00 Assessment & Plan Assessment & Plan (1) Annual physical exam: Code(s): Z00.00 - Encounter for general adult medical examination without abnormal findings Category: Medical Plan: History of Present Illness - The patient is a 59-year-old female presenting for a physical examination and preventative care. - Recent blood work indicated macrocytosis, with red blood cells larger than normal, potentially linked to weekend alcohol consumption. - Preventative care includes an influenza vaccination administered during the visit and a shingles vaccination to be obtained at the pharmacy. - A mammogram order was placed, and the patient plans to schedule it post-vacation. - The patient opted for Cologuard for colon cancer screening due to a previous adverse reaction to anesthesia during a colonoscopy. Social History - The patient is retired and plans to spend two weeks on vacation with her . - The patient smokes and acknowledges the need to quit, hoping to use the vacation as an opportunity to reduce smoking. Review of Systems - General: Denies any current health concerns. - Gastrointestinal: Denies abdominal pain. Physical Exam General: Cooperative and healthy appearing Nutritional Appearance: Well nourished Orientation/consciousness: Patient oriented x3 Limitations: No limitations Head: Normal to inspection General: Appearance normal, both eyes and all related structures Neck: Normal visual inspection Chest: Normal palpation of entire chest wall Respiratory: Smoker ormal respiratory effort Neurology: Patient oriented x3 Results - Labs: Recent blood work showed macrocytosis with enlarged red blood cells. Plan - Continue current medications including vitamin D, sertraline, and simvastatin at the same dosages. - Administer influenza vaccination during the visit. - Arrange for shingles vaccination to be obtained at the pharmacy. - Place order for mammogram and advise the patient to schedule it post-vacation. - Utilize Cologuard for colon cancer screening due to previous adverse reaction to anesthesia during colonoscopy. - Encourage smoking cessation, particularly during the upcoming vacation period. Discussion Notes During the visit, I discussed the importance of continuing current medications, including vitamin D, sertraline, and simvastatin, at the same dosages. We administered the influenza vaccination and arranged for the shingles vaccination to be obtained at the pharmacy. I placed an order for a mammogram and advised the patient to schedule it after her vacation. We also discussed using Cologuard for colon cancer screening due to her previous adverse reaction to anesthesia during colonoscopy. I encouraged her to consider smoking cessation, especially during her upcoming vacation. Patient Instructions - Continue taking vitamin D, sertraline, and simvastatin as prescribed. - Receive the influenza vaccination today. - Obtain the shingles vaccination at the pharmacy. - Schedule a mammogram after returning from vacation. - Use Cologuard for colon cancer screening. - Consider quitting smoking, especially during the vacation. Orders: Orders MM screening mammo BI Today Z12.31 - Encounter for screening mammogram for malignant neoplasm of breast Referrals Cologuard Test Z12.11 - Encounter for screening for malignant neoplasm of colon Medications: New adjuvant AS01B (PF)vial 1 of 2 (Shingrix Adjuvant Component (PF) intramuscular suspension) 0.5 mL IM ONCE 0.5 mL 0RF
== END 2025-01-26 09:02 | disposition home or self-care (01) ==
LOC: HO.HMCH 08:21
PROVIDERS: PCP Internal Medicine; Visit Provider Internal Medicine
DX: Z00.00 Encounter for general adult medical examination without abnormal findings (principal); Z23 Encounter for immunization

== ENCOUNTER → 2025-01-26 08:20 | Outpatient (BNVA) | payer OTHER, SELFPAY | PROVIDERS: PCP Internal Medicine; Visit Provider Internal Medicine | DX: Z00.00 Encounter for general adult medical examination without abnormal findings (principal); F17.210 Nicotine dependence, cigarettes, uncomplicated; Z23 Encounter for immunization | CPT/HCPCS: 90471; 90656; 99396 ==